=== PATIENT | male | born 1945 ===

== ENCOUNTER → 2016-10-21 | Outpatient (CLI) | payer OTHER ==
[2016-10-21 13:26] LABS: BASO % 0.8 %; BASO ABS # 0.04 K/uL (0-0.2); COMPLETE YES; EOS % 4.2 %; HEMATOCRIT 37.8 % (42-52); IG% 0.2 %; LYMPH % 27.1 %; LYMPH ABS # 1.42 K/uL (1.2-3.4); MEAN CELL VOLUME 88.5 fL (80-100); MEAN CORPUSCULAR HEMOGLOBIN 29.5 pg (25-34); MEAN CORPUSCULAR HGB CONC 33.3 g/dl (32-36); MEAN PLATELET VOLUME 11.1 fL (7.4-10.4); MONO % 11.6 %; NEUT % 56.1 %; PLATELET COUNT 200 K/uL (130-400); RED BLOOD COUNT 4.27 M/uL (4.7-6.1); WHITE BLOOD COUNT 5.24 K/uL (4.8-10.8)
[2016-10-21 13:43] LABS: ESTIMATED AVERAGE GLUCOSE 183 mg/dl; HA1C FLAG Normal (Normal)
[2016-10-21 13:49] LABS: BLOOD UREA NITROGEN 22 mg/dl (7-18); BUN/CREATININE RATIO 14.5 (10-20); CARBON DIOXIDE 27 mmol/L (21-32); CHLORIDE 105 mmol/L (98-107); GLUCOSE 158 mg/dl (70-99); PHOSPHORUS 3.7 mg/dl (2.5-4.9); POTASSIUM 4.9 mmol/L (3.5-5.1); SODIUM 140 mmol/L (136-145)
[2016-10-21 13:56] LABS: CALCIUM 9.1 mg/dl (8.5-10.1)
== END | disposition home or self-care (01) ==
LOC: C.LABMFLN 11:20
PROVIDERS: ATTEND Family Medicine
DX: E11.65 Type 2 diabetes mellitus with hyperglycemia (principal)

== ENCOUNTER → 2017-02-09 | Outpatient (CLI) | payer OTHER ==
[2017-02-09 13:17] LABS: BASO % 0.9 %; BASO ABS # 0.04 K/uL (0-0.2); COMPLETE YES; EOS % 3.1 %; IG% 0.2 %; LYMPH % 29.7 %; LYMPH ABS # 1.26 K/uL (1.2-3.4); MEAN CELL VOLUME 89.4 fL (80-100); MEAN CORPUSCULAR HEMOGLOBIN 29.6 pg (25-34); MEAN CORPUSCULAR HGB CONC 33.2 g/dl (32-36); MEAN PLATELET VOLUME 11.6 fL (7.4-10.4); MONO % 10.8 %; NEUT % 55.3 %; PLATELET COUNT 163 K/uL (130-400); RED BLOOD COUNT 4.25 M/uL (4.7-6.1); WHITE BLOOD COUNT 4.24 K/uL (4.8-10.8)
[2017-02-09 13:28] LABS: BLOOD UREA NITROGEN 16 mg/dl (7-18); BUN/CREATININE RATIO 10.8 (10-20); CALCIUM 8.9 mg/dl (8.5-10.1); CARBON DIOXIDE 29 mmol/L (21-32); CHLORIDE 104 mmol/L (98-107); GLUCOSE 222 mg/dl (70-99); POTASSIUM 4.7 mmol/L (3.5-5.1); SODIUM 139 mmol/L (136-145)
[2017-02-09 13:34] LABS: FERRITIN 124.8 ng/ml (8.0-388.0); PHOSPHORUS 3.8 mg/dl (2.5-4.9); TOTAL IRON BINDING CAPACITY 342 mcg/dl (250-450)
[2017-02-09 14:11] LABS: ESTIMATED AVERAGE GLUCOSE 206 mg/dl; HA1C FLAG Normal (Normal)
--- NOTE | 2017-02-15 11:25 | CODING QUERY MEDICAL NECESSITY ---
CQSUPPORTING DIAGNOSIS NEEDED A supporting diagnosis is required for the test/procedure performed on this patient in order for us to be reimbursed by the patient's insurance. Please provide a supporting diagnosis for the following test/procedure listed below next to the test name along with your signature. *If there is no additional diagnosis for this patient that would support the following test/procedure please document that below next to the test/procedure. Test(s)/Procedure(s) that require a supporting diagnosis: DOS 02/09/17 VITAMIN B12 TEST FOLIC ACID TEST Provider Signature: Date: Thank you Jaqui Aguilar [facility] Information Management Once completed, please kindly fax back to [phone] For questions please call [phone]
== END | disposition home or self-care (01) ==
LOC: C.LABMFLN 10:08
PROVIDERS: ATTEND Family Medicine
DX: E11.9 Type 2 diabetes mellitus without complications (principal); D64.9 Anemia, unspecified

== ENCOUNTER → 2017-05-16 | Outpatient (CLI) | payer OTHER ==
[2017-05-16 13:26] LABS: BASO % 0.6 %; BASO ABS # 0.04 K/uL (0-0.2); COMPLETE YES; EOS % 3.2 %; HEMATOCRIT 42.1 % (42-52); IG% 0.3 %; LYMPH % 24.5 %; MEAN CELL VOLUME 86.6 fL (80-100); MEAN CORPUSCULAR HEMOGLOBIN 29.8 pg (25-34); MEAN CORPUSCULAR HGB CONC 34.4 g/dl (32-36); MEAN PLATELET VOLUME 12.4 fL (7.4-10.4); MONO % 9.8 %; NEUT % 61.6 %; PLATELET COUNT 184 K/uL (130-400); RED BLOOD COUNT 4.86 M/uL (4.7-6.1); WHITE BLOOD COUNT 6.93 K/uL (4.8-10.8)
[2017-05-16 13:42] LABS: ESTIMATED AVERAGE GLUCOSE 240 mg/dl; HA1C FLAG Normal (Normal)
[2017-05-16 13:46] LABS: ALT/SGPT 36 U/L (12-78); AST/SGOT 17 U/L (15-37); BLOOD UREA NITROGEN 19 mg/dl (7-18); BUN/CREATININE RATIO 12.7 (10-20); CALCIUM 8.8 mg/dl (8.5-10.1); CARBON DIOXIDE 27 mmol/L (21-32); CHLORIDE 100 mmol/L (98-107); CREATININE 1.48 mg/dl (0.60-1.40); GLUCOSE 247 mg/dl (70-99); POTASSIUM 4.9 mmol/L (3.5-5.1); SODIUM 136 mmol/L (136-145); TRIGLYCERIDES 257 mg/dl (0-150); VERY LOW DENSITY LIPOPROT CALC 51 mg/dl
[2017-05-16 13:58] LABS: ALB/GLOB RATIO 1.2 (0.9-2); ALKALINE PHOSPHATASE 71 U/L (45-117); CHOLESTEROL 142 mg/dl (0-200); CHOLESTEROL/HDL RATIO 3.8; HDL CHOLESTEROL 37 mg/dl; LDL CHOLESTEROL CALCULATED 54 mg/dl
== END | disposition home or self-care (01) ==
LOC: C.LABMFLN 08:46
PROVIDERS: ATTEND Family Medicine
DX: E11.65 Type 2 diabetes mellitus with hyperglycemia (principal); E78.5 Hyperlipidemia, unspecified